=== PATIENT | male | born 1970 | race Caucasian/White ===

== ENCOUNTER 2017-11-02 12:58 | Emergency (ER) | payer MEDICAID, OTHER ==
[~2017-11-02 12:58] MED LIST: HYDR-3534 PO; NAPR250T57 PO
[2017-11-02 12:59] VITALS: BP 188/87; PULSE 104; RESP 16; TEMP 98.5; O2SAT 97
--- NOTE | 2017-11-02 14:54 | PD ---
HPI Chief Complaint: Musculoskeletal Complaint Time Seen by Provider: 14:53 Travel History International Travel<30 days: No Contact w/Intl Traveler<30days: No Traveled to known affect area: No History of Present Illness HPI 51-year-old homeless male comes in stating right knee pain status post "playing basketball" 2 days ago. Patient is complaining that he can't fully straighten the knee. He states he heard a "pop". Patient states his pain is 9 out of 10. He denies numbness or tingling distally. He is noted to have crutches. He has no known drug allergies. Patient was noted to be in triage complaining of pain, and then asked one of the nurses to watch his stuff while he walked to the car. PFSH Past Medical History Hx Anticoagulant Therapy: No ADD: Yes ADHD: Yes Arthritis: Yes Bipolar Disorder: Yes Chest Pain: Yes Diminished Hearing: No Hepatitis: Yes (HEP C) Past Surgical History Other Surgery: Yes (LEFT CLAVICLE, L SHOULDER) Social History Alcohol Use: Yes (1/2 gallon RUM DAILY) Tobacco Use: Yes (2ppd) Substance Use: Yes (POLYSUB, IV DRUGS, CRACK, METH, IV HERION) Allergies-Medications (Allergen,Severity, Reaction): Coded Allergies: No Known Allergies (Unverified Adverse Reaction, Unknown, 11/02/17) Reported Meds & Prescriptions Reported Meds & Active Scripts Active Naprosyn (Naproxen) 250 Mg Tab 250 Mg PO BID PRN Lortab (Hydrocodone-Acetaminophen) 7.5-325 Mg Tab 1-2 Tab PO Q6H PRN Review of Systems Except as stated in HPI: all other systems reviewed are Neg General / Constitutional: No: Fever Eyes: No: Visual changes HENT: No: Headaches Cardiovascular: No: Chest Pain or Discomfort Respiratory: No: Shortness of Breath Gastrointestinal: No: Abdominal Pain Genitourinary: No: Dysuria Musculoskeletal: Positive: Arthralgias, Limited ROM, Pain Skin: No Rash Neurologic: No: Weakness Psychiatric: No: Depression Endocrine: No: Polydipsia Hematologic/Lymphatic: No: Easy Bruising Physical Exam Narrative GENERAL: Disheveled appearing male in mild to moderate distress. SKIN: Warm and dry. Normal color. Normal turgor. No abrasions. Symptoms. HEAD: Atraumatic. Normocephalic. EYES: Pupils equal and round. No scleral icterus. No injection or drainage. ENT: No nasal bleeding or discharge. Mucous membranes pink and moist. NECK: Trachea midline. Supple and nontender. CARDIOVASCULAR: Regular rate and rhythm. RESPIRATORY: No accessory muscle use. Clear to auscultation. Breath sounds equal bilaterally. MUSCULOSKELETAL: Extremities without clubbing, cyanosis, or edema. No obvious deformities. Patient has a mild effusion noted around the right knee. Exam is limited secondary to patient's pain. Laxity is noted. X-ray was ordered in triage. NEUROLOGICAL: Awake and alert. No obvious cranial nerve deficits. Motor grossly within normal limits. Five out of 5 muscle strength in the arms and legs. Normal speech. PSYCHIATRIC: Appropriate mood and affect; insight and judgment normal. Data Data Last Documented VS Vital Signs Date Time Temp Pulse Resp B/P (MAP) Pulse Ox O2 Delivery O2 Flow Rate FiO2 11/02/17 12:59 98.5 104 16 188/87 (120) 97 Orders Orders Knee, Complete (4vws) (11/02/17 ) Ketorolac Inj (Toradol Inj) (11/02/17 15:00) Splint Or Brace Apply/Monitor (11/02/17 14:57) MDM Medical Decision Making Medical Screen Exam Complete: Yes Emergency Medical Condition: Yes Medical Record Reviewed: Yes Differential Diagnosis Right knee sprain. Fracture. Malingering. Narrative Course Patient is given Toradol 60 mg IM. Patient was offered a knee immobilizer but refused and was placed in an Ricardo bandage. X-ray show no acute fracture or dislocation. Patient should use ice to the area frequently. And was given Toradol 60 mg IM. Patient should continue ibuprofen 800 mg 3 times a day #30. Patient should use Ricardo wrap and crutches as needed. Patient is to follow-up with Dr. Bañuelos if symptoms do not improve or worsen. Diagnosis Primary Impression: Acute pain of right knee Referrals: Won Alexandra Jr., MD Patient Instructions: Arthralgia (ED), Crutch Instructions (ED), General Instructions, Knee Pain (ED) Additional Instructions: X-ray show no acute fracture or dislocation. Patient should use ice to the area frequently. And was given Toradol 60 mg IM. Patient should continue ibuprofen 800 mg 3 times a day #30. Patient should use Ricardo wrap and crutches as needed. Patient is to follow-up with Dr. Bañuelos if symptoms do not improve or worsen. Med/Other Pt SpecificInfo: Prescription(s) given Disposition: 01 DISCHARGE HOME Condition: Stable Oswald Savage Nov 02, 2017 14:54
[2017-11-02] MEDS ORDERED: KETOROLAC TROMETHAMINE 60 MG/2 ML (IM) VIAL IM ONE (15:00)
--- NOTE | 2017-11-02 15:00 | RADRPT ---
EXAM DATE/TIME: 11/02/2017 13:50 [facility] COMPARISON: No previous studies available for comparison. INDICATIONS : Right knee pain after playing basketball yesterday. MEDICAL HISTORY : None. SURGICAL HISTORY : None. ENCOUNTER: Initial ACUITY: 2 days PAIN SCORE: 10/10 LOCATION: Left entire knee. FINDINGS: Prepatellar soft tissue swelling is noted. There is increased density in the suprapatellar bursa sugg esting a small effusion. Arthropathy with joint space narrowing is identified in the medial and lateral joint compartments. Bony structures are intact without evidence of fracture. CONCLUSION: 1. Prepatellar soft tissue swelling. 2. Small joint effusion. 3. Arthropathy with joint space narrowing. 4. No acute bony abnormality. Tyrone Martins MD on November 02, 2017 at 14:57 Board Certified Radiologist. This report was verified electronically.
[2017-11-02] MEDS ORDERED: IBUP1TAB7 PO (15:11)
== END 2017-11-02 15:40 | disposition home or self-care (01) ==
LOC: NEPD 12:58
DX: M25.561 Pain in right knee (principal); F17.200 Nicotine dependence, unspecified, uncomplicated
CPT/HCPCS: 73564; 96372; 99284; J1885; L1830